=== PATIENT | female | born 1940 | race Caucasian/White ===

== ENCOUNTER → 2017-10-26 09:58 | Outpatient (CLI) | payer MEDICARE, SELFPAY ==
--- NOTE | 2017-10-26 | DI.MRI.S_ITS ---
PROCEDURE: MR KNEE LT WO CON INDICATIONS: CHRONIC PAIN OF LEFT KNEE TECHNIQUE: Noncontrast sagittal PD fast spin echo and T2 fast spin echo with fat saturation, sagittal 3-D FLASH with fat saturation; coronal T1 spin echo and PD fast spin echo with fat saturation, and axial PD fast spin echo with fat saturation through the knee. COMPARISON: [facility] [place], CR, XR KNEE ARTHRITIC SERIES BI, 10/07/2017, 13:51. FINDINGS: Image quality: Excellent. Menisci: Degenerative fraying of the free edge of the anterior horn, body, and posterior horn of the medial meniscus. Amorphous high signal intensity within the anterior horn lateral meniscus, demonstrating superior and inferior articular surface extension. Linear high signal intensity obliquely traverses the posterior horn lateral meniscus, demonstrating inferior articular surface extension, indicating oblique tearing. Cruciate ligaments: The anterior and posterior cruciate ligaments appear intact. Medial structures: The medial collateral ligament appears intact. The posterior oblique ligament, semimembranosus tendon insertions, oblique popliteal ligament, and meniscocapsular junction appear intact. Visualized portions of the pes anserinus tendons appear normal. No abnormal bursal fluid. Lateral structures: The lateral collateral ligament demonstrates moderate T2 signal elevation within and surrounding its femoral insertion site. The long and short heads of the biceps femoris tendon appear intact. The popliteus tendon appears normal; the popliteofibular ligament appears intact. The posterosuperior and anteroinferior popliteomeniscal fascicles appear intact. The arcuate and fabellofibular ligaments appear intact, on either side of the lateral inferior geniculate artery. Iliotibial band appears normal. Anterior structures: The quadriceps and patellar tendons appear intact. Lateral patellar subluxation is present. No femoral trochlear dysplasia or ventral trochlear prominence. Mild edema within the superolateral aspect of the the infrapatellar fat pad. Bones and cartilage: No bone marrow contusions or fractures. There is moderate tricompartmental periarticular osteophyte formation. Moderate diffuse articular cartilage loss overlies the weightbearing aspects of the medial femoral condyle and medial tibial plateau. Moderate to severe articular cartilage loss overlies the weightbearing aspects of the lateral compartment posteriorly. Severe articular cartilage loss overlies the lateral patellar facet and lateral femoral trochlea. Joint space: There is a moderate knee joint effusion and a small Zamarripa's cyst. A ganglion cyst along the popliteus is present, containing a 9 mm diameter intra-articular loose body. Normal appearing synovial plicae are incidentally noted. IMPRESSION: 1. Tricompartmental osteoarthritis with associated articular cartilage loss. 2. Medial and lateral meniscal tearing. 3. Partial-thickness lateral collateral ligament tear. 4. New joint effusion and Zamarripa's cyst, with a ganglion cyst along the popliteus containing an intra-articular loose body. 5. 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 Dictated by: Lurdes Foreman M.D. on 10/26/2017 at 13:17 Approved by: Lurdes Foreman M.D. on 10/26/2017 at 13:21
== END ==
PROVIDERS: PCP Family Medicine; Visit Provider Orthopaedic Surgery
DX: M25.562 Pain in left knee (principal); S83.242A Other tear of medial meniscus, current injury, left knee, initial encounter; S83.282A Other tear of lateral meniscus, current injury, left knee, initial encounter; S83.402A Sprain of unspecified collateral ligament of left knee, initial encounter; M25.462 Effusion, left knee; M71.22 Synovial cyst of popliteal space [Baker], left knee; M23.42 Loose body in knee, left knee
CPT/HCPCS: 73721

== ENCOUNTER → 2018-01-02 09:47 | Outpatient (CLI) | payer MEDICARE, SELFPAY ==
[2018-01-02 09:57] LABS: Bacteria Urine None Seen
[2018-01-02 10:58] LABS: Appearance Urine UA CLEAR; Bilirubin Urine UA NEGATIVE (NEGATIVE); Color Urine UA YELLOW; Glucose Urine UA NEGATIVE (Normal); Ketones Urine UA NEGATIVE (NEGATIVE); Leukocyte Esterase Urine UA NEGATIVE (NEGATIVE); Nitrite Urine UA Negative (Negative); Occult Blood Urine UA 1+ (Negative); Protein Urine UA NEGATIVE (Negative); Urobilinogen Urine UA 0.2 E.U./dL (0.2)
[2018-01-02 11:09] LABS: Add Manual Diff / Slide Review NO; Basophils Percent Auto 0.6 % (0-2); Eosinophils Percent Auto 2.9 % (2-4); Hemoglobin 13.1 g/dL (12.0-16.0); Lymphocytes Percent Auto 33.2 % (25-40); Mean Corpuscular HGB Conc 33.6 % (30-36); Mean Corpuscular Hemoglobin 30.2 PG (26-34); Mean Corpuscular Volume 90.1 fL (80-100); Monocytes Percent Auto 7.2 % (3-14); Neutrophils Absolute Auto 2900 /uL (3000-5900); Neutrophils Percent Auto 56.1 % (50-75); Platelet Count 171 X10^3/uL (150-400); Red Blood Cell Count 4.32 X10^6/uL (4.0-5.2); Red Cell Distribution Width 14.2 % (11.6-14.8); White Blood Cell Count 5.2 X10^3/uL (4.5-11.0)
[2018-01-02 11:24] LABS: RBC Urine 5-10/HPF (0-5/HPF); Squamous Epithelial Cell Urine 5-10 /HPF; WBC Urine 1-5/HPF (0-5/HPF)
[2018-01-02 11:25] LABS: Culture Indicated Urine Cult Not Indicated
[2018-01-02 11:40] LABS: BUN Creatinine Ratio 28.8 (6-22); Blood Urea Nitrogen 23 mg/dL (7-17); Carbon Dioxide 33 mmol/L (22-32); Chloride 98 mmol/L (98-107); Estimated Glomerular Filt Rate > 60.0 mL/min (>60); Glucose 104 mg/dL (80-110); HEMOLYSIS < 15 (0-50); Potassium 3.9 mmol/L (3.4-5.1); Sodium 140 mmol/L (137-145)
[2018-01-02 11:44] LABS: Hemoglobin A1C% w Est Avg Glu 5.9 % (4.0-6.0)
== END ==
PROVIDERS: PCP Family Medicine; Visit Provider Orthopaedic Surgery
DX: Z01.818 Encounter for other preprocedural examination (principal); Z01.812 Encounter for preprocedural laboratory examination; N39.9 Disorder of urinary system, unspecified; R73.09 Other abnormal glucose
CPT/HCPCS: 36415; 80048; 81001; 83036; 85025; 93005; 93010

== ENCOUNTER 2018-01-24 06:05 | Inpatient (IN) | payer MEDICARE, SELFPAY ==
[2018-01-17 10:52] VITALS: BMI 33.6
[2018-01-24] VITALS (18 sets, daily range): BP systolic 80–163; BP diastolic 43–72; PULSE 60–89; RESP 11–18; TEMP 35.9–36.6; O2SAT 94–100; BMI 33.6
--- NOTE | 2018-01-24 06:15 | DI.RAD.S_ITS ---
PROCEDURE: XR KNEE LT 1TO2V INDICATIONS: prosthesis placement - post operative left knee TECHNIQUE: 2 view(s) of the knee acquired. COMPARISON: [facility] [place], [place], XR KNEE ARTHRITIC SERIES BI, 10/07/2017, 13:51. [facility], MR, MR KNEE LT WO CON, 10/26/2017, 10:50. [facility], CR, KNEE 3V RIGHT, 05/14/2011, 7:12. FINDINGS: Bones: Patient is status post knee joint arthroplasty. Hardware components are in expected positions. Visualized bony structures are intact. Soft tissues: Overlying postoperative changes are noted. IMPRESSION: Status post knee arthroplasty as above. Dictated by: Christina Mitchell M.D. on 01/24/2018 at 9:19 Approved by: Christina Mitchell M.D. on 01/24/2018 at 9:20
[2018-01-24] MEDS: VANCOMYCIN 1,000 MG/200 ML FROZ.PIGGY 200 MG IV (06:48)
[2018-01-24] MEDS: ACETAMINOPHEN 325 MG TABLET 975 MG PO ×3 (07:19→21:10)
[2018-01-24] MEDS: PREGABALIN 75 MG CAPSULE PO (07:22)
[2018-01-24] MEDS: CELECOXIB 200 MG CAPSULE PO (07:23)
--- NOTE | 2018-01-24 07:50 | PM.PREOP ---
Pre-operative Note Interval Note Pre-op Check: Yes History & Physical Reviewed by Physician and Yes Exam Performed Changes: No
[2018-01-24] MEDS: LACTATED RINGERS 1,000 ML 42 ML IV ×2 (07:51→09:18)
[2018-01-24] MEDS: CEFAZOLIN 2 GM/100 ML FROZ.PIGGY IV ×2 (07:57→17:02)
--- NOTE | 2018-01-24 07:57 | PM.OP.1 ---
Operative Date/Time/Diagnoses Date of procedure: 01/24/18 Time of procedure: 08:05 Pre-op diagnosis: left knee OA Post-op diagnosis: same Procedure & Clinicians Procedure: left knee OA Same procedure as scheduled: Yes Indications: The patient has had progressively worsening left knee pain with radiographic changes consistent with arthritis. Non-operative management has failed and the patient has requested total knee replacement. The risks, benefits and alternatives to surgery were discussed with the patient prior to proceeding. Risks discussed included, but were not limited to, failure to relieve pain, stiffness, infection, nerve damage, deep venous thrombosis, pulmonary embolism, stroke, coma, heart attack, permanent paralysis and , as well as the potential need for eventual revision of the prosthetic. Surgeon: Justina Dang Diploma Dental Assistant: Ankita Hernández Anesthesia Type: General and Spinal Operative Notes Findings: Severe left knee osteoarthritis, good balance Closure Type: primary Implants & Drains: Dang [employer] Nephew Yasmani BCS2 femur 3, tibia 2, patella 32 x 7.5, poly 9 Applied: drain(s) Estimated Blood Loss (mL): 200 Blood products transfused: none Tourniquet time (min): 63 Procedure in detail: The patient was seen in the pre-operative area, where the patient identified the left knee as the operative site and this was marked with my initials. The patient received pre-operative antibiotics, and was taken to the operating room and placed on the operative table in the supine position. After satisfactory anesthesia, a workforce development program director out was performed. The left leg was encircled with a tourniquet about the proximal thigh, and the leg was prepared from the toes to the tourniquet with ChloroPrep in the usual fashion and draped through sterile drapes. The leg was elevated and exsanguinated with Eschmark bandage and the tourniquet inflated to [250] mmHg pressure. The knee was approached through an approximately 18 cm incision centered over the patella and carried into the knee through a medial parapatellar arthrotomy. Portion of the medial and lateral meniscus was resected. Soft tissue was carefully mobilized around the patella the patella was measured with a caliper. Bone was resected from the patella and the patellar height was reconstituted with up an appropriate sized patellar component. A cover was then placed on the patella. A small amount of additional medial and lateral meniscus was resected. The visionare guide fit well to the distal femur. It looked like an appropriate distal femoral cut and the cut was made without difficulty. The rotation was assessed and the appropriate size femoral guide was placed on the distal femur and finishing cuts were made. There was no evidence of notching. The anterior, posterior and chamfer cuts were then made. The posterior osteophytes and soft tissues were then removed. The posterior capsule was injected with part of a mixture of 60 ml 0.25% Marcaine mixed with 20 ml Exparel for post operative pain control. The remainder of this mixture was injected into the capsule and subcutaneous tissues during cement curing. The tibia was prepared and the visionaire guide fit well to the distal tibia. The rotation was assessed. The patient was placed in extension residual medial and lateral meniscus as well as any residual bone was carefully resected. [No] additional tibia was resected. Hemostasis was achieved especially posteriorly. Additional local was injected into the posterior capsule. The extension gap was assessed and additional releases for gap balancing were performed as necessary. There was minor injury to the popliteus tendon. It was checked with the gap gas burner operator. The femoral component was trial was placed and the notch was finished. Trial tibial and femoral components were then placed and the knee placed through a range of motion. Range of motion was [0-130], with good stability throughout the range. The trials were then removed, and the tibia was finished. The bone was prepared with pulsatile lavage, and dried with a sponge. Cement was applied and the final prosthetics placed. Excess cement was removed during and after cement curing. A brief Betadine soak was performed. After confirming there was no extruded cement posteriorly, the final tibial insert was placed. The knee was copiously irrigated and the tourniquet deflated. Hemostasis was obtained with the Bovie. A drain was placed and brought out superolaterally. The capsule was closed with interrupted nonabsorbable suture. The subcutaneous layer was closed with barbed sutures, and the skin with a running 3-0 V-Lock suture and Surgical glue. An Aquacel Ag dressing was applied and the patient was taken to recovery having tolerated the procedure well. Complications: none Condition: stable Disposition: Acute Care Plan for aftercare: The patient will be maintained on a standard total knee replacement protocol with weight bearing as tolerated. The patient will receive aspirin and sequential compression devices for DVT prophylaxis. The patient will be discharged home when safe for the home environment.
--- NOTE | 2018-01-24 08:32 | SUR.OPER ---
Supine on padded OR bed. Pillow under head, arms secured on padded armboards <90 degree abduction. Safety belt across torso. Non-operative leg secured with tape over blanket over lower leg. Operative leg secured in DeMayo/Guzman positioner. Foam padded brace at thigh of operative leg.
[2018-01-24] MEDS: BUPIVACAINE LIPOSOME 266 MG/20 ML VIAL INJ (08:49)
[2018-01-24] MEDS: BUPIVACAINE 0.25% W/ EPI VIAL 50 ML INJ (08:49)
[2018-01-24] MEDS: TRANEXAMIC ACID 1,000 MG VIAL 1000 MG IV (08:51)
[2018-01-24] MEDS: POVIDONE-IODINE 15 ML, SODIUM CHLORIDE 0.9% 250 ML TOP (08:52)
[2018-01-24] MEDS: TRANEXAMIC ACID 1,000 MG VIAL 1000 MG INJ (09:20)
[2018-01-24] MEDS: LACTATED RINGERS 1,000 ML 125 ML IV ×2 (11:14→19:52)
[2018-01-24] MEDS: OXYCODONE IR 5 MG TABLET PO ×3 (13:15→21:21)
--- NOTE | 2018-01-24 15:25 | PT.IIE ---
Current Diagnoses Unilateral primary osteoarthritis, left knee (01/24/18) Surgery Performed Operation Date: 01/24/18 07:45 Actual Procedures p Total Knee Arthroplasty(Left) - Justina Dang MD Surgical History (Last Updated 01/17/18 @ 11:16 by Bailey Adorno RN) H/O dilation and curettage (Acute) History of arthroplasty of right knee (Acute) History of bilateral carpal tunnel release (Acute) Status post hysterectomy (03/15/83) Medical History (Last Updated 01/17/18 @ 11:16 by Bailey Adorno RN) Arthritis (Acute) Colon polyps (Acute) Diarrhea (Acute) Fragile skin (Acute) HTN (hypertension) (Acute) Low back pain (Acute) Rosacea (Acute) Seasonal allergies (Acute) Physical Therapy Inpatient Evaluation/Re-Eval Medical Review Prior Functional Status Medical History Reviewed Yes Diet/Fluid Consistency Regular Communication no known deficits Mobility and Gait ind without device at baseline , denies falls Social History Household Members spouse Living Arrangements House Number of Floors (Floors) One Floor Number of Stairs To Enter/Railing? 2-3STE Home Environment High Toilet Walk in Shower Tub/Shower Doors Home Equipment Front Wheel Walker Hand Held Shower Leg Tire Finisher Employment Status Retired Additional Social History Comment can provide physical assist if needed Physical Therapy Current Condition Current Condition Evaluation Date 01/24/18 Treatment Diagnosis L TKA - impaired mobility Onset Date 01/24/18 Weight Bearing Status Weight Bearing Status Weight Bear as Tolerated Subjective Physical Therapy Visit Type Type Initial Evaluation Visit Start Time 13:00 Visit Stop Time 13:58 Total Visit Minutes 58 Physical Therapy Visit Comments Patient Comments Pt reports doing well, feels like her sensation/motor control as fully returned. Short Term Goals go home tomorrow Therapy Pain Assessment Pain When Pain Assessed At Rest Pain Present Pain Present Pain Reported Location Left Upper Arm Intensity 2 Pain Management Techniques Apply Cold Elevation Modification of Treatment Re-positioning Timing of Activity with Medications PT-Bed Mobility Assessment Supine to Sit Supine to Sit Standby Assistance Head of Bed Elevated Scooting Scooting to Edge of Bed Standby Assistance PT-Transfer Assessment Sit to and From Stand Sit to and from Stand Contact Guard Assistance 1 Person Assistance Use of Upper Extremities Equipment Transfer Assistive Device Gait Belt Front Wheeled Walker Transfers Transfer Destination Chair Toilet Transfer Technique Stand Step Pivot Transfer Ability Level of Assist Contact Guard Assistance 1 Person Assistance Use of Upper Extremities Comments Mobility Comments Pt has a leg bass string winder and uses it well for moving leg around in the bed, pt does have difficulty coming up to sitting from a flat bed, will need to practice this more prior to discharge. Gait Assessment Gait Gait Assistance Required: Contact Guard Assist Distance (Feet) (feet) 100 Assistive Devices Assistive Device Gait Belt Front Wheeled Walker Gait Deviations General Gait Pattern Antalgic Decreased Stride Length Step-to Gait Factors Limiting Gait Function Factors Limiting Gait Function Decreased Activity Tolerance Decreased Strength Limited Range of Motion Pain Comments Gait Comments Gait quality improved with verbal cues for symmetrical gait. Stair Climbing Assessment Comments Stair Climbing Comments not tested this session PT-Balance Assessment Sitting Balance and Reactions Static Sitting Balance Ability Normal Dynamic Sitting Balance Ability Normal Standing Balance and Reactions Static Standing Balance Ability Normal Dynamic Standing Balance Ability Good Device Used FWW Orientation Orientation/Cognition Level of Alertness Alert Orientation Name Age Birthday Month Date Year Day of Week Place Situation Language Function Ability No Deficits Noted Safety Awareness Understands Safety Issues Memory Description No Deficits Noted Gross Range of Motion Upper Extremity ROM Assessment Within Functional Limits Lower Extremity ROM Assessment Left Impaired Strength Upper Extremity Strength Assessment Within Functional Limits Lower Extremity Strength Assessment Left Impaired Comments Strength Comments LLE limited by pain related weakness Physical Therapy Treatment Exercises Exercises Ankle Pumps Quad Sets Heel Slides Straight Leg Raises Short Arc Quads Passive Knee Extension Hang Seated Knee Flexion/Extension Education Education Provided Precautions Weight Bearing Status Post-Op Packet Safety PT Summary Assessment and Plan Potential Rehabilitation Potential Excellent Status of Condition at Evaluation Stable Summary Impairments Pain ROM Strength Bed Mobility Transfers Gait Activity Tolerance Progress Towards Goals Progressing Toward Goals Assessment Summary Pt is POD#0 L TKA and presents with the expected pain, weakness, and limited ROM. Pt currently SBA<>CGA with use of FWW for functional mobility. This is below pt's reported functional baseline, and pt has potential for functional improvement. Pt will need extensive bed mobility training prior to discharge but will be safe to discharge home with assist from when medically ready. Anticipate that pt will be ready for this tomorrow and will need to continue with outpatient PT once at home. Goals Bed Mobility Goal Independent Transfer Goal Independent Front Wheeled Walker Gait Goal Independent Front Wheel Walker Gait Distance 200 Days to Meet Goals 1 Frequency of Treatment Frequency Of Treatment Twice a Day Treatment Plan Physical Therapy Treatment Plan Bed Mobility Training Gait Training Therapeutic Exercise Post Op Education Discharge Planning Hot or Cold Pack Other Recommendations and Next Treatment bed mobility (pt uses a step Focus stool to get into her bed) Recommendations To Nursing Amount of Assist Needed 1 Person Assist Discharge Recommendations PT Discharge Recommendations Home with Assistance Outpatient PT
--- NOTE | 2018-01-24 15:36 | PC.NURSE ---
Day Shift- Report rec'd from NATANAEL Li in PACU at 1030. Pt arrived to unit at 1050 via bed. Pt A&OX4, pt's Quang and daughter Shaina present at bedside. Oriented to call light and high fall risk precautions. Left knee hemovac marked clamped at 0955, unclamped at 1300. Output approx 90mls recorded in I/O's. Pt OOB with PT ambulated in halls, to chair for 30mins and back to bed,1PA. Pt reports that Oxycodone 5mg prn was not very effective. Given at 1315, worked with PT at 1400. Ice pack to left knee prn. Evening RN aware of pain issue, pt states has mild to moderate pain.
[2018-01-24] MEDS: ASPIRIN EC 81 MG TABLET PO (21:10)
[2018-01-25] MEDS: CEFAZOLIN 2 GM/100 ML FROZ.PIGGY IV (00:01)
[2018-01-25 00:15] VITALS: BP 141/80; PULSE 69; RESP 19; TEMP 36.7; O2SAT 94
[2018-01-25] MEDS: OXYCODONE IR 5 MG TABLET PO ×5 (00:15→13:16)
[2018-01-25 03:37] VITALS: BP 138/50; PULSE 69; RESP 19; TEMP 35.4; O2SAT 95
[2018-01-25 06:34] LABS: Hematocrit 35.2 % (36-46); Hemoglobin 11.8 g/dL (12.0-16.0)
[2018-01-25 07:25] VITALS: BP 155/56; PULSE 73; RESP 17; TEMP 36.8; O2SAT 97
[2018-01-25] MEDS: FLUTICASONE 120 SPRAY/16 GM SPRAY.SUSP NASAL (08:38)
[2018-01-25] MEDS: ASPIRIN EC 81 MG TABLET PO (08:38)
[2018-01-25] MEDS: ACETAMINOPHEN 325 MG TABLET 975 MG PO (08:38)
--- NOTE | 2018-01-25 10:09 | P.DS_ITS ---
History of Present Illness Date Patient Seen: 01/25/18 Time Patient Seen: 10:07 Chief complaint: total knee arthroplasty [id number] Narrative: Patient's pain is [id number]. Denies fever chills. No nausea vomiting. She has been ambulating in the halls. She has assistance at home. She does wish to go home today if safe to do so. Discharge Providers Date of admission: 01/24/18 06:05 Primary care physician: Vi Gtz DO Consults: 01/24/18 11:02 Consult to Discharge Planning Routine Comment: Consult to Physical Therapy Evaluate & Treat Comment: oob today Physician Instructions: postop TKA protocol Consult to Respiratory Therapy Evaluate & Treat Comment: Physician Instructions: Evaluate and treat Discharge provider: Jamie Singh PA-C Summary Discharge Diagnosis: Status post left total knee arthroplasty. Hospital Course: Patient failed outpatient conservative treatment. She is admitted for left total knee arthroplasty. Consented for the same. Taken the operating room underwent left total knee arthroplasty. No complications. She received general and spinal anesthesia. Estimated blood loss 200 cc. Patient back in her room recovering well and is in stable condition. Status at Discharge Functional status at discharge: uses cane/walker Overall status at discharge: patient is progressing back to baseline Time Spent with Patient Less than 30 minutes Exam Vital Signs (past 8 hours): - 01/25/18 03:37 01/25/18 07:25 Temperature 95.8 F L 98.3 F Pulse Rate 69 73 Respiratory Rate 19 17 Blood Pressure 138/50 L 155/56 H Pulse Oximetry 95 97 Oxygen Delivery Method Room Air Oxygen Flow Rate 0 Narrative Exam Narrative: Pleasant 77-year-old female resting comfortably in bed in no apparent distress. Left knee dressing is clean, dry and intact. Motor function intact distal left lower extremity. The left leg is warm and dry. Sensation grossly intact to light touch. Objective Labs Result Diagrams: 01/25/18 06:12 Labs: Laboratory Results - last 24 hr 01/25/18 06:12 Hgb 11.8 L Hct 35.2 L Discharge Plan Discharge Plan Patient Disposition: Home Discharge comment: DC home today Discharge Med Rec/Prescriptions Prescriptions: Continue lisinopril 20 MG tablet 20 mg PO QDAY Qty: 90 RF: 3 hydrochlorothiazide 25 MG tablet 25 mg PO QDAY Qty: 90 RF: 3 ibuprofen [Advil] 200 mg Tablet 200 mg PO Q6-8H PRN (Reason: pain) RF: 0 fluticasone [Aller-Nico] 50 mcg/actuation [place],Suspension 2 spray INTRANASAL DAILY RF: 0 Follow up/Referrals: Vi Gtz DO [Primary Care Provider] - Justina Dang MD [Physician] - (SNO in 5-7 days) Provider Discharge Instructions Diet: Diet as Tolerated Activity: WBAT Cold/Heat Therapy: Ice as needed Other treatments: Patient has prescriptions at home for postop pain. She will be on aspirin 81 mg b.i.d.. Tylenol 1000 mg 3 times daily. Vistaril as needed nausea and muscle spasms, oxycodone as needed pain Skin/Wound/Dressing Care Report to your healthcare provider any signs of infection, such as:: chills, fever, night sweats, increased pain and unusual drainage Dressing: Keep clean and dry Visit Report/Discharge Packet Visit Report Forms: Stroke Signs & Symptoms Discharge Data Primary Care Provider: Vi Gtz Attending Provider: Justina Dang Admit Date/Time: 01/24/18 06:05 Quality VTE Deep Vein Thrombosis/Pulmonary Embolism Present on Admission: Yes
--- NOTE | 2018-01-25 10:35 | PT.IPTN ---
Current Diagnoses Unilateral primary osteoarthritis, left knee (01/24/18) Surgery Performed Operation Date: 01/24/18 07:45 Actual Procedures p Total Knee Arthroplasty(Left) - Justina Dang MD Physical Therapy Treatment Note M2 PT-IP Current Condition Start: 01/24/18 15:15 Freq: NEEDED Status: Active Protocol: Document 01/24/18 13:58 RS (Rec: 01/24/18 15:25 RS [id number]) Physical Therapy Current Condition Current Condition Evaluation Date 01/24/18 Treatment Diagnosis L TKA - impaired mobility Onset Date 01/24/18 Weight Bearing Status Weight Bearing Status Weight Bear as Tolerated M3 PT-IP Subjective Start: 01/24/18 15:15 Freq: NEEDED Status: Active Protocol: Document 01/25/18 10:35 GGD (Rec: 01/25/18 12:12 GGD [id number]) Subjective Physical Therapy Visit Type Type Treatment Note Visit Start Time 10:05 Visit Stop Time 10:35 Total Visit Minutes 30 Physical Therapy Visit Comments Patient Comments Pt states she feels ready to D /C home. Therapy Pain Assessment Pain When Pain Assessed During Mobility Pain Present Pain Present Pain Reported Location Left Upper Arm Intensity 7 Scale Used Numeric (1 - 10) Pain Management Techniques Re-positioning Timing of Activity with Medications M4 PT-IP Mobility and Gait Start: 01/24/18 15:15 Freq: NEEDED Status: Active Protocol: Document 01/25/18 10:35 GGD (Rec: 01/25/18 12:12 GGD [id number]) PT-Transfer Assessment Sit to and From Stand Sit to and from Stand Contact Guard Assistance Use of Upper Extremities Equipment Transfer Assistive Device Gait Belt Front Wheeled Walker Transfers Transfer Destination Chair Wheelchair Transfer Ability Level of Assist Contact Guard Assistance 1 Person Assistance Use of Upper Extremities Gait Assessment Gait Gait Assistance Required: Contact Guard Assist Distance (Feet) (feet) 150 Assistive Devices Assistive Device Gait Belt Front Wheeled Walker Gait Deviations General Gait Pattern Antalgic Decreased Stride Length Step-to Gait Factors Limiting Gait Function Factors Limiting Gait Function Decreased Activity Tolerance Decreased Strength Limited Range of Motion Pain Stair Climbing Assessment Evaluation Level of Assist On Stairs Contact Guard Assistance Devices Stair Climbing Assistive Devices Left Railing Technique/Endurance Stair Climbing Direction Ascend and Descend Stair Climbing Technique Step to Step Number of Steps Climbed 3 Query Text: Stair Climbing Set # Repetitions (reps) 1 Comments Stair Climbing Comments Pt needed min cues for stair techinque. M5 PT-IP Objective Assessments Start: 01/24/18 15:15 Freq: NEEDED Status: Active Protocol: Document 01/24/18 13:58 RS (Rec: 01/24/18 15:25 RS [id number]) Orientation Orientation/Cognition Level of Alertness Alert Orientation Name Age Birthday Month Date Year Day of Week Place Situation Language Function Ability No Deficits Noted Safety Awareness Understands Safety Issues Memory Description No Deficits Noted Gross Range of Motion Upper Extremity ROM Assessment Within Functional Limits Lower Extremity ROM Assessment Left Impaired Strength Upper Extremity Strength Assessment Within Functional Limits Lower Extremity Strength Assessment Left Impaired Comments Strength Comments LLE limited by pain related weakness M6 PT-IP Treatment Start: 01/24/18 15:15 Freq: NEEDED Status: Active Protocol: Document 01/25/18 10:35 GGD (Rec: 01/25/18 12:12 GGD [id number]) Physical Therapy Treatment Exercises Exercises Ankle Pumps Quad Sets Seated Knee Flexion/Extension Education Education Provided Safety M7 PT-IP Assessment and Plan Start: 01/24/18 15:15 Freq: NEEDED Status: Active Protocol: Document 01/25/18 10:35 GGD (Rec: 01/25/18 12:12 GGD [id number]) PT Summary Assessment and Plan Summary Assessment Summary Pt improving with mobility. She had increase pain with weight bearing, but didn't limit her tolerance to gait. She had improved gait quality. She was save with stairs with cues for foot sequence. Frequency of Treatment Frequency Of Treatment Twice a Day Recommendations To Nursing Amount of Assist Needed 1 Person Assist Discharge Recommendations PT Discharge Recommendations Home with Assistance Outpatient PT
--- NOTE | 2018-01-25 13:17 | CM.DPNOTE ---
DCP Discharge Home Per PA, pt making progress and likely can d/c home today pending further PT. Per PT, pt still quite painful but able to ambulate and recommending safe d/c home with assist when medically stable. Plan: SW to follow for likely pt d/c home later today via POV pending her pain control issues. DWAYNE Edmonds
[2018-01-25] MEDS: OXYCODONE IR 10 MG TABLET PO (13:19)
--- NOTE | 2018-01-25 14:12 | PC.NURSE ---
Day Shift-hemovac removed per Dr. Dang verbal order. Removed without difficulty, 90mls total of bloody drainage. Gauze dressing applied, for 5mins as bleeding had not stopped. New gauze and tegaderm dressing applied. bleeding stopped. Oxycodone 10mg prn given for 5-6/10 aching to left knee prior to discharge. Billy wrap also removed per Dr. Dang instructions. BETZY Barfield called per pt request for Vistaril for prescription. New prescription rec'd and given to pt with instructions. Verbal and written discharge instructions given to pt and her Quang on F/U appt, they state is on Feb 01, pain management, diet, activity, dressing management, S/S of infection.Also information on Stroke awareness, S/S, risk factors. All questions answered, no further concerns. pt eager to go home. Pt's Quang present to drive pt home, Pt's daughter Shaina is meeting the pt at the pt's home also. Prescription for Vistaril given to pt's daughter to fill, pt aware. Pt is bringing home all her belongings and walker. Pt left unit in no distress via wheelchair with [employer] OPER[employer].
== END 2018-01-25 13:45 | disposition home or self-care (01) | DRG 470 ==
PROVIDERS: Admitting Provider Orthopaedic Surgery; PCP Family Medicine; Visit Provider Orthopaedic Surgery
PROC: 0SRD0JZ Replacement of Left Knee Joint with Synthetic Substitute, Open Approach (ICD-10-PCS; CPT 27447; principal; 2018-01-24 07:45)
DX: M17.12 Unilateral primary osteoarthritis, left knee (principal); Z96.651 Presence of right artificial knee joint; I10 Essential (primary) hypertension; Z87.891 Personal history of nicotine dependence
CPT/HCPCS: 36415; 73560; 85014; 85018; 97110; 97116; 97161; 97530; C1776; C9290; J0690; J2250; J2704; J3010; J3370

== ENCOUNTER → 2018-05-02 08:07 | Outpatient (CLI) | payer MEDICARE, SELFPAY ==
[2018-04-13 15:11] VITALS: BMI 33.6
[2018-05-02 08:55] LABS: Alanine Aminotransferase 18 IU/L (9-52); Albumin 4.4 g/dL (3.5-5.0); Albumin Globulin Ratio 1.5 (1.0-2.8); Alkaline Phosphatase 60 U/L (38-126); Aspartate Aminotransferase 20 IU/L (14-36); BUN Creatinine Ratio 22.2 (6-22); Bilirubin Total 0.4 mg/dL (0.2-1.3); Blood Urea Nitrogen 20 mg/dL (7-17); Calcium 9.6 mg/dL (8.4-10.2); Carbon Dioxide 31 mmol/L (22-32); Chloride 99 mmol/L (98-107); Cholesterol 194 mg/dL (140-199); Estimated Glomerular Filt Rate > 60.0 mL/min (>60); Glucose 108 mg/dL (80-110); HDL Cholesterol 60 mg/dL (40-60); HEMOLYSIS < 15 (0-50); LDL Cholesterol Calculated 115 mg/dL (<100); Potassium 3.5 mmol/L (3.4-5.1); Sodium 143 mmol/L (137-145); Total Protein 7.4 g/dL (6.3-8.2); Triglycerides 93 mg/dL (35-150)
[2018-05-02 10:22] LABS: Thyroid Stimulating Hormone 0.62 uIU/mL (0.47-4.68)
== END ==
PROVIDERS: PCP Family Medicine; Visit Provider Family Medicine
DX: I10 Essential (primary) hypertension (principal); R73.9 Hyperglycemia, unspecified; Z51.81 Encounter for therapeutic drug level monitoring
CPT/HCPCS: 36415; 80053; 80061; 84443

== ENCOUNTER → 2018-11-03 09:34 | Outpatient (CLI) | payer MEDICARE, SELFPAY ==
[2018-04-13 15:11] VITALS: BMI 33.6
--- NOTE | 2018-11-03 | DI.MG.S_ITS ---
BILATERAL DIGITAL SCREENING MAMMOGRAM 3D/2D WITH CAD: 11/03/2018 CLINICAL: Routine screening. Family history of breast cancer. Comparison is made to exams dated: 03/31/2017 mammogram and 06/22/2013 mammogram - Located [facility]. There are scattered fibroglandular elements in both breasts. Current study was also evaluated with a Computer Aided Detection (CAD) system. No significant masses, calcifications, or other findings are seen in either breast. There has been no significant interval change. IMPRESSION: NEGATIVE There is no mammographic evidence of malignancy. A 1 year screening mammogram is recommended. This exam was interpreted at Station ID: [id number]. NOTE: For mammograms, a report in lay terms will be sent to the patient. Approximately 15% of breast malignancies will not be visualized mammographically. In the management of a palpable breast mass, a negative mammogram must not discourage biopsy of a clinically suspicious lesion. Electronically Signed By: June louie/teresa:11/06/2018 11:23:35 letter sent: Normal Exam ACR BI-RADS Category 1: Negative 3341F
== END ==
PROVIDERS: PCP Family Medicine; Visit Provider Family Medicine
DX: Z12.31 Encounter for screening mammogram for malignant neoplasm of breast (principal); Z80.3 Family history of malignant neoplasm of breast
CPT/HCPCS: 77063; 77067

== ENCOUNTER 2019-01-09 09:58 | Day surgery (SDC) | payer MEDICARE, SELFPAY ==
[2018-04-13 15:11] VITALS: BMI 33.6
[2019-01-09] MEDS: PROPARACAINE 0.5% OPHTH SOL 2 DROPS EYE-OP (10:40)
[2019-01-09] MEDS: CATARACT EYE COMPOUND (10 DROPS/SYRINGE) 3 DROPS EYE-OP (11:14)
[2019-01-09 11:15] VITALS: BMI 33.0
[2019-01-09 11:20] VITALS: BP 166/77; PULSE 81; RESP 20; TEMP 37.2; O2SAT 98
--- NOTE | 2019-01-09 11:59 | PM.PREOP ---
Pre-operative Note Interval Note History & Physical reviewed/Exam performed by Physician: No Changes to H&P: No
--- NOTE | 2019-01-09 11:59 | PM.OP.1 ---
Operative Date/Time/Diagnoses Pre-op diagnosis: Nuclear Cataract Left eye Post-op diagnosis: same Procedure & Clinicians Surgeon: Brannon Orr Anesthesia Type: MAC +/- and Sedation Operative Notes Procedure in detail: Patient brought to the operating suite. Tetracaine drops placed in the left eye. Patient was prepped and draped in sterile manner. Wire lid speculum was placed in the eye. Betadine drops were placed on the eye. This was irrigated. Lidocaine jelly was placed on the eye. A paracentesis port was created with a side-port blade. 0.1 mL 1% preservative free lidocaine was injected into the anterior chamber. The anterior chamber was deepened with viscoelastic. 2.6 mm keratome was used to create a temporal clear corneal incision. Cystotome and Utrata forceps were used to create continuous tear capsulorrhexis. Balanced salt solution was used to hydro dissect the nucleus. The phacoemulsification handpiece was inserted and the nucleus was removed using the stop and chop technique. The irrigation aspiration handpiece was inserted and the remaining cortex was removed. Anterior chamber was deepened with viscoelastic. An Chu ZCB00 intraocular lens with a power of 23.5 was injected into the capsular bag. Irrigation aspiration handpiece was inserted and the remaining viscoelastic was removed. Incision was hydrated with balanced salt solution and found to be leak free with pressure with Weck-Christel sponges. 0.1 mL Vigamox injected anterior chamber. 0.3 mL Kenalog 10 mg was injected subconjunctivally. Lid speculum was removed. The patient left the operating room in excellent condition. Complications: none Condition: stable Disposition: same day surgery
[2019-01-09] MEDS: MOXIFLOXACIN INJ 5 MG/ML VIAL EYE-OP (12:18)
[2019-01-09] MEDS: CHONDROIDTIN/SOD HYALURONATE 1.05 ML SYRINGE INTRAOCULA (12:18)
[2019-01-09] MEDS: TRIAMCINOLONE 50 MG/5 ML VIAL INJ (12:18)
[2019-01-09] MEDS: PHENYLEPHRINE/LIDOCAINE VIAL (OR) 0.2 ML EYE-OP (12:18)
[2019-01-09] MEDS: TETRACAINE 0.5% OPHTH DROPS 4 ML 2 DROPS EYE-OP (12:19)
[2019-01-09] MEDS: BALANCED SALT IRRIG SOLN NO.2 500 ML, EPINEPHrine 1 MG IRR (12:19)
[2019-01-09] MEDS: LIDOCAINE JELLY 2% 5 ML 1 APPLIC TOP (12:19)
[2019-01-09 12:30] VITALS: BP 143/64; PULSE 74; O2SAT 98
--- NOTE | 2019-01-09 15:07 | SUR.PHASEII ---
Phase II done by Yady
== END 2019-01-09 12:45 | disposition home or self-care (01) ==
LOC: OR 10:00
PROVIDERS: PCP Family Medicine; Visit Provider Ophthalmology
PROC: (CPT 66984; principal; 2019-01-09 12:15)
DX: H25.12 Age-related nuclear cataract, left eye (principal); I10 Essential (primary) hypertension
CPT/HCPCS: 66984; J0171; J2250; J3301

== ENCOUNTER 2019-01-23 08:46 | Day surgery (SDC) | payer MEDICARE, SELFPAY ==
[2018-04-13 15:11] VITALS: BMI 33.6
[2019-01-23 09:50] VITALS: BP 140/68; PULSE 68; RESP 16; TEMP 36.8; O2SAT 99; BMI 32.2
[2019-01-23] MEDS: PROPARACAINE 0.5% OPHTH SOL 2 DROPS EYE-OP (10:00)
[2019-01-23] MEDS: CATARACT EYE COMPOUND (10 DROPS/SYRINGE) 3 DROPS EYE-OP (10:02)
--- NOTE | 2019-01-23 10:49 | PM.PREOP ---
Pre-operative Note Interval Note History & Physical reviewed/Exam performed by Physician: No Changes to H&P: No
--- NOTE | 2019-01-23 10:49 | PM.OP.1 ---
Operative Date/Time/Diagnoses Pre-op diagnosis: Nuclear cataract right eye Procedure & Clinicians Procedure: Cataract Surgery Same procedure as scheduled: Yes Surgeon: Brannon Orr Anesthesia Type: MAC +/- and Sedation Operative Notes Procedure in detail: Patient brought to the operating suite. Tetracaine drops placed in the right eye. Patient was prepped and draped in sterile manner. Wire lid speculum was placed in the eye. Betadine drops were placed on the eye. This was irrigated. Lidocaine jelly was placed on the eye. A paracentesis port was created with a side-port blade. 0.1 mL 1% preservative free lidocaine was injected into the anterior chamber. The anterior chamber was deepened with viscoelastic. 2.6 mm keratome was used to create a temporal clear corneal incision. Cystotome and Utrata forceps were used to create continuous tear capsulorrhexis. Balanced salt solution was used to hydro dissect the nucleus. The phacoemulsification handpiece was inserted and the nucleus was removed using the stop and chop technique. The irrigation aspiration handpiece was inserted and the remaining cortex was removed. Anterior chamber was deepened with viscoelastic. An Chu ZCB00 intraocular lens with a power of 23.0 was injected into the capsular bag. Irrigation aspiration handpiece was inserted and the remaining viscoelastic was removed. Incision was hydrated with balanced salt solution and found to be leak free with pressure with Weck-Christel sponges. 0.1 mL Vigamox injected anterior chamber. 0.3 mL Kenalog 10 mg was injected subconjunctivally. Lid speculum was removed. The patient left the operating room in excellent condition. Complications: none Post-operative Condition: stable Disposition: same day surgery
[2019-01-23] MEDS: PHENYLEPHRINE/LIDOCAINE VIAL (OR) 0.2 ML EYE-OP (11:24)
[2019-01-23] MEDS: MOXIFLOXACIN INJ 5 MG/ML VIAL EYE-OP (11:25)
[2019-01-23] MEDS: TRIAMCINOLONE 50 MG/5 ML VIAL INJ (11:25)
[2019-01-23] MEDS: CHONDROIDTIN/SOD HYALURONATE 1.05 ML SYRINGE INTRAOCULA (11:25)
[2019-01-23] MEDS: LIDOCAINE JELLY 2% 5 ML 1 APPLIC TOP (11:25)
[2019-01-23] MEDS: BALANCED SALT IRRIG SOLN NO.2 500 ML, EPINEPHrine 1 MG IRR (11:26)
[2019-01-23] MEDS: TETRACAINE 0.5% OPHTH DROPS 4 ML 2 DROPS EYE-OP (11:26)
[2019-01-23 11:37] VITALS: BP 118/62; PULSE 71; RESP 15; TEMP 36.1; O2SAT 97
== END 2019-01-23 11:45 | disposition home or self-care (01) ==
LOC: OR 08:47
PROVIDERS: PCP Family Medicine; Visit Provider Ophthalmology
PROC: (CPT 66984; principal; 2019-01-23 10:45)
DX: H25.11 Age-related nuclear cataract, right eye (principal); I10 Essential (primary) hypertension
CPT/HCPCS: 66984; J0171; J2250; J3010; J3301

== ENCOUNTER → 2019-06-25 08:07 | Outpatient (CLI) | payer MEDICARE, SELFPAY ==
[2018-04-13 15:11] VITALS: BMI 33.6
--- NOTE | 2019-06-25 | DI.ECHO.S_ITS ---
[facility]---------+ [facility] +---------+ : : [address] : : : : [id number] : : : : Phone: [phone]+ Echocardiogram Report + + :Name: JESUS LAN Study Date: 06/25/2019 Height: 62 in : :[facility] Weight: 183 lb : : Gender: Female BSA: 1.8 m2 : :: 1940 Age: 79 yrs BP: 148/83 mmHg: :Reason For Study: Murmur : : Performed By: Charisse Villafuerte : :Referring: WENDI ROSAS : + + Interpretation Summary Small left ventricular cavity with hyperdynamic function and ejection fraction of 65-70%. Moderate aortic valve sclerosis. Mild mitral annular calcification. Procedure: A two-dimensional transthoracic echocardiogram with color flow and Doppler was performed. The study quality was technically adequate. There is no prior echocardiogram noted for this patient. The patient was in normal sinus rhythm during the exam. Left Ventricle: The left ventricular cavity is small. There is normal left ventricular wall thickness. The left ventricle is hyperdynamic. The ejection fraction is estimated to be 65-70%. There are no focal wall motion abnormalities. Right Ventricle: The right ventricle is normal in size and function. Atria: The left atrial size is normal. Right atrial size is normal. There is no Doppler evidence for an interatrial shunt. Mitral Valve: There is mild mitral annular calcification. The mitral valve leaflets appear borderline thickened, but open well. There is no mitral stenosis. There is trace mitral regurgitation. Aortic Valve: The aortic valve is not well visualized. There is moderate aortic valve sclerosis. There is trace aortic regurgitation. Tricuspid Valve: The tricuspid valve is normal in structure and function. There is trace tricuspid regurgitation. The right ventricular systolic pressure is estimated to be at least 26 mmHg based on an estimated right atrial pressure of 3 mm Hg. Pulmonic Valve: The pulmonic valve is not well visualized. There is trace pulmonic regurgitation. Great Vessels: The aortic root is normal size. The ascending aorta is normal in size. The aortic arch is normal in size. The IVC is of normal diameter and collapses greater than 50% with a sniff. This suggests a low right atrial pressure of 3 mm Hg. Pericardium/ Pleura There is no pericardial effusion. MMode/2D Measurements & Calculations LVIDd: 3.5 cm LVOT diam: 2.0 cm LVIDs: 2.4 cm Ao root diam: 2.9 cm FS: 31.9 % asc Aorta Diam: 3.0 cm EPSS: 0.67 cm Ao Arch Diam (Prox Trans): 2.1 cm IVSd: 1.0 cm LVPWd: 0.99 cm LV abbott. diameter/BSA (cm/m^2): 1.9 LV sys. diameter/BSA (cm/m^2): 1.3 LA A2 area: 15.5 cm2 RA long axis: 4.8 cm LA A4 area: 15.6 cm2 RA area: 13.4 cm2 LA length (vol): 5.0 cm RA vol: 31.4 ml LA vol: 40.8 ml RA : 17.1 ml/m2 LA vol index: 22.2 ml/m2 IVC diam: 1.5 cm RVD1 (basal): 3.0 cm RVD2 (mid): 2.4 cm TAPSE: 2.0 cm Doppler Measurements & Calculations Ao V2 max: 209.8 cm/sec LVOT Max Josh: 120.0 cm/sec Ao V2 mean: 139.8 cm/sec LV V1 max P.8 mmHg Ao max P.6 mmHg LV V1 VTI: 30.7 cm Ao mean P.1 mmHg FAN(I,D): 1.8 cm2 Ao V2 VTI: 51.2 cm FAN(V,D): 1.8 cm2 sev ratio: 0.60 FAN indexed to BSA (cm^2/m^2): 1.0 MV E max josh: 75.6 cm/sec TR max josh: 239.3 cm/sec MV A max josh: 103.1 cm/sec TR max P.1 mmHg MV E/A: 0.73 PA V2 max: 75.9 cm/sec Med Peak E' Josh: 7.6 cm/sec PA V2 mean: 54.3 cm/sec E/E' med: 10.0 PA mean P.3 mmHg Lat Peak E' Josh: 9.3 cm/sec PA pr(Accel): 40.1 mmHg E/E' lat: 8.2 PA Accel Time: 0.09 sec E/e' average: 9.1 MV dec time: 0.28 sec MV P1/2t: 83.0 msec MVA(VTI): 2.8 cm2 MV V2 mean: 74.1 cm/sec MV P1/2t max josh: 76.7 cm/sec MV mean P.4 mmHg MVA(P1/2t): 2.7 cm2 MV V2 VTI: 34.1 cm SV(LVOT): 94.4 ml Electronically signed by: Amada Shaffer on Reading Physician:06/25/2019 10:43 AM
== END ==
PROVIDERS: PCP Family Medicine; Referring Provider Student in an Organized Health Care Education/Training Program; Visit Provider Student in an Organized Health Care Education/Training Program
DX: I35.8 Other nonrheumatic aortic valve disorders (principal); R01.1 Cardiac murmur, unspecified
CPT/HCPCS: 93306

== ENCOUNTER → 2019-07-25 09:54 | Outpatient (CLI) | payer MEDICARE, SELFPAY ==
[2018-04-13 15:11] VITALS: BMI 33.6
--- NOTE | 2019-07-25 09:58 | DIET.PN ---
Dietary Progress Note Assessment: 79y F referred to [facility] for preDM HT: 5'2 WT: 180s (was 215# kept wt off for 5y) Usual Day: wakes 7am coffee c silk creamer sometimes cereal c cashew milk 11am lunch: leftovers, tuna on saltine crackers, pb on 2 pieces bread or crackers, pb on apple, ice black tea dinner: likes batch cooking tacos c corn shells, tomatoes, lettuce, onion, albanian cheese, avocado sometimes albanian soup- pork, enchilada sauce, hominy pasta c homemade sauce snack after dinner while watching tv: chocolate chips Labs: A1c 6.2 H, has been trending up past several years, was 5.9 in February PA: has two knee replacements (7y, 2y) does have some pain with movement and has some IBS sx so afraid to go too far from home. Nutrition Diagnosis: altered nutrition related laboratory values r/t endocrine dysfunction and nutrition related knowledge deficit aeb A1c 6.2, pt not knowing what a carb is or how it affects body, physical inactivity. Interventions: 1. Discussed lab values, what they mean and how we can improve them. 2. Educated pt on carbohydrate foods, to limit meals to 30g and snacks to 15g/d. 3. Discussed role of physical activity, to aim for 150 minutes per week, with a focus on doable activity which can be sustained. 4. Educated on label reading using actual food labels, how to calculate carb content and adjust portion sizes to fit moderate carb intake. Monitoring/Evaluations: f/u c further questions
== END ==
PROVIDERS: PCP Student in an Organized Health Care Education/Training Program; Referring Provider Student in an Organized Health Care Education/Training Program; Visit Provider Student in an Organized Health Care Education/Training Program
DX: R73.03 Prediabetes (principal); E66.9 Obesity, unspecified; Z68.32 Body mass index [BMI] 32.0-32.9, adult; Z71.3 Dietary counseling and surveillance
CPT/HCPCS: 97802

== ENCOUNTER → 2020-03-13 16:35 | Outpatient (CLI) | payer MEDICARE, SELFPAY ==
[2018-04-13 15:11] VITALS: BMI 33.6
--- NOTE | 2020-03-13 16:38 | DI.MG.S_ITS ---
BILATERAL DIGITAL SCREENING MAMMOGRAM 3D/2D WITH CAD: 03/13/2020 CLINICAL: Routine screening. Family history of breast cancer. Comparison is made to exams dated: 11/03/2018 mammogram and 03/31/2017 mammogram - [facility]. There are scattered fibroglandular elements in both breasts. Current study was also evaluated with a Computer Aided Detection (CAD) system. No significant masses, calcifications, or other findings are seen in either breast. There has been no significant interval change. IMPRESSION: NEGATIVE There is no mammographic evidence of malignancy. A 1 year screening mammogram is recommended. This exam was interpreted at Station ID: [id number]. NOTE: For mammograms, a report in lay terms will be sent to the patient. Approximately 15% of breast malignancies will not be visualized mammographically. In the management of a palpable breast mass, a negative mammogram must not discourage biopsy of a clinically suspicious lesion. Electronically Signed By: Rick murillo/teresa:03/13/2020 17:01:31 letter sent: Normal Exam ACR BI-RADS Category 1: Negative 3341F
== END ==
PROVIDERS: PCP Student in an Organized Health Care Education/Training Program; Referring Provider Student in an Organized Health Care Education/Training Program; Visit Provider Student in an Organized Health Care Education/Training Program
DX: Z12.31 Encounter for screening mammogram for malignant neoplasm of breast (principal); Z80.3 Family history of malignant neoplasm of breast
CPT/HCPCS: 77063; 77067